=== PATIENT | male | born 1995 | race Caucasian/White ===

== ENCOUNTER → 2019-10-23 11:33 | Outpatient (BNVA) | payer OTHER, SELFPAY | PROVIDERS: Family Provider Internal Medicine; PCP Internal Medicine; Visit Provider Nurse Practitioner Family | DX: J06.9 Acute upper respiratory infection, unspecified (principal); Z20.828 Contact with and (suspected) exposure to other viral communicable diseases | CPT/HCPCS: 87635 ==

== ENCOUNTER 2020-02-27 16:16 | Emergency (ER) | payer OTHER, SELFPAY ==
[2020-02-27 16:24] VITALS: BP 150/92; PULSE 80; RESP 18; TEMP 36.7; O2SAT 99; BMI 32.9
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
== END 2020-02-27 17:44 | disposition home or self-care (01) ==
PROVIDERS: Emergency Provider Nurse Practitioner Family; PCP Nurse Practitioner Family
DX: S60.512A Abrasion of left hand, initial encounter (principal); S80.11XA Contusion of right lower leg, initial encounter; V89.2XXA Person injured in unspecified motor-vehicle accident, traffic, initial encounter
CPT/HCPCS: 12345; 73130; 99281; 99282

== ENCOUNTER 2022-02-19 16:53 | Outpatient (CLI) | payer BC, MEDICAID, SELFPAY ==
--- NOTE | 2022-02-19 17:10 | XR_ITS ---
WS: [id number] XR lumbar spine 6V w f/e [id number] REASON FOR EXAM: RADICULOPATHY FINDINGS: Normal lordosis on the lateral view. Mild rotatory scoliosis convex left on the AP view. No focal vertebral body abnormality. There is narrowing of all the lumbar disc spaces and there are irregularities in the superior endplat es compatible with Schmorl's nodes. (CT scan 09/15/2015 demonstrates degenerative lumbar disc disease a nd multiple Schmorl's nodes.) There is bilateral spondylolysis at L5-S1 with 4 to 5 mm of anterolisthesis of L5 on S1 in the neutra l position. This listhesis increases to 9 mm with flexion and to 6 mm with extension. XR/XR lumbar spine 6V w f/e [id number] IMPRESSION: Multilevel degenerative disc disease with spondylolysis and spondylolisthesis a t L5-S1 as above.
--- NOTE | 2022-02-19 17:14 | XR_ITS ---
WS: [id number] XR thoracic spine 3V* [id number] REASON FOR EXAM: RADICULOPATHY FINDINGS: Mild thoracic scoliosis between T12 and T6 convex left. Normal thoracic spine alignment on the latera l view. Mild narrowing of the intervertebral disc spaces T9-T12 with small vertebral body osteophytes. No significant compression deformity or other focal lesion of the thoracic vertebral bodies. XR/XR thoracic spine 3V* [id number] IMPRESSION: Mild thoracic scoliosis and degenerative disc disease as described above.
== END 2022-02-19 16:54 | disposition home or self-care (01) ==
PROVIDERS: PCP Nurse Practitioner Family; Visit Provider Nurse Practitioner Family
DX: M54.16 Radiculopathy, lumbar region (principal)
CPT/HCPCS: 72072; 72114